=== PATIENT | male | born 1955 | race Two or more races ===

== ENCOUNTER → 2017-08-18 | Emergency (ER) | payer SELFPAY ==
[~2017-08-18] VITALS: Ht 170.2 cm; Wt 88.9 kg
[2017-08-18 13:48] VITALS: BP 128/73
== END | disposition home or self-care (01) ==
LOC: ER 13:45
DX: F10.129 Alcohol abuse with intoxication, unspecified (principal)
CPT/HCPCS: 82962; 99284; A4606; Z7610